=== PATIENT | female | born 2000 | race Caucasian/White ===

== ENCOUNTER 2019-01-31 20:57 | Emergency (ER) | payer OTHER ==
[~2019-01-31] VITALS: Ht 167.6 cm; Wt 77.1 kg
[2019-01-31 20:57] VITALS: BP 133/82
--- NOTE | 2019-01-31 22:24 | NUR ---
PT AMBULATED TO BED 12.
--- NOTE | 2019-01-31 22:30 | NUR ---
PT BIB FRIEND C/O SORE THROAT X1 WEEK. PT STATES SORE THROAT X1 WEEK, PRODUCTIVE COUGH XTODAY. --AIRWAY PATENT. CLEAR SPEECH. MILD REDNESS AROUND TONSILS. DENIES N/V/D. LUNG SOUNDS CLEAR BL. BREATHING EQUAL AND UNLABORED. PMH: DENIES RX: DENIES
--- NOTE | 2019-02-01 00:41 | NUR ---
FLU SWAB COLLECTED AND SENT W/ HEARING HEALTH TECHNICIAN.
[2019-02-01] MEDS ORDERED: AMOXICILLIN 500 MG CAP PO ONE (02:20)
[2019-02-01] MEDS ORDERED: LIDOCAINE VISCOUS 2% 20 ML UDC PO ONE (02:20)
--- NOTE | 2019-02-01 02:45 | NUR ---
RESULTS BACK AND NOTED BY ERMD AND FOR D/C.
[2019-02-01 03:32] VITALS: BP 121/78
--- NOTE | 2019-02-01 03:32 | NUR ---
Patient discharged with v/s stable. Written and verbal after care instructions given and explained. Patient alert, oriented and verbalized understanding of instructions. Ambulatory with steady gait. All questions addressed prior to discharge. ID band removed. Patient advised to follow up with PMD. Rx of AMOXICILLIN 500MG,LIDOCAINE VISCOUS SOLUTION given. Patient educated on indication of medication including possible reaction and side effects. Opportunity to ask questions provided and answered.
== END 2019-02-01 03:32 | disposition home or self-care (01) ==
LOC: MED 20:57
DX: J02.8 Acute pharyngitis due to other specified organisms (principal); H92.02 Otalgia, left ear; B96.89 Other specified bacterial agents as the cause of diseases classified elsewhere
CPT/HCPCS: 87804; 99283

== ENCOUNTER 2021-07-19 20:04 | Emergency (ER) | payer SELFPAY ==
[~2021-07-19] VITALS: Ht 167.6 cm; Wt 80.7 kg
[2021-07-19 20:10] VITALS: BP 147/88
--- NOTE | 2021-07-19 20:13 | NUR ---
TO LOBBY A/W BED AMBULATORY
--- NOTE | 2021-07-19 20:15 | NUR ---
21 Y/O FEMALE PATIENT CAME TO THE ED C/O VOMITTINGX 1 WEEK. PT STATES, " I HAVENT BEEN ABLE TO KEEP ANYTHING FOR A WEEK." SKIN IS PINK/WARM/DRY; AAOX4 WITH EVEN AND STEADY GAIT; LUNGS CLEAR BL; HR EVEN AND REGULAR; PT DENIES ANY FEVER, CP, SOB, OR COUGH AT THIS TIME; PATIENT STATES PAIN OF 8/10 AT THIS TIME; VSS; PATIENT POSITIONED FOR COMFORT; HOB ELEVATED; BEDRAILS UP X2; BED DOWN. ER MD MADE AWARE OF PT STATUS. NKA PMH: DENIES G4 A2 L1
[2021-07-19 20:51] LABS: BASOPHILS % (AUTO) 0.2 % (0.0-2.0); EOSINOPHILS % (AUTO) 0.1 % (0.0-4.0); HEMATOCRIT 41.8 % (36-48); HEMOGLOBIN 13.7 g/dL (12.0-16.0); LYMPHOCYTES # (AUTO) 2.6 K/uL (2.5-16.5); LYMPHOCYTES % (AUTO) 15.1 % (20.5-51.1); MEAN CORPUSCULAR HEMOGLOBIN 28 pg (27-31); MEAN CORPUSCULAR HGB CONC 33 g/dL (33-37); MONOCYTES # (AUTO) 0.9 K/uL (0.8-1.0); MONOCYTES % (AUTO) 5.4 % (1.7-9.3); NEUTROPHILS # (AUTO) 13.9 K/uL (1.8-7.7); NEUTROPHILS % (AUTO) 79.2 % (42.2-75.2); PLATELET COUNT (AUTO) 332 K/uL (140-450); RED BLOOD CELL COUNT(AUTO) 4.98 MIL/uL (4.20-5.40); RED CELL DISTRIBUTION WIDTH 14.3 % (11.6-13.7); WHITE BLOOD COUNT (AUTO) 17.5 K/uL (4.8-10.8)
[2021-07-19 21:07] LABS: ALBUMIN 3.8 g/dL (3.4-5.0); CARBON DIOXIDE 28.7 mmol/L (21-32); CREATININE 0.8 mg/dL (0.6-1.3); POTASSIUM 3.7 mmol/L (3.5-5.1); TOTAL BILIRUBIN 0.7 mg/dL (0.0-1.0)
[2021-07-19] MEDS ORDERED: ONDANSETRON 4 MG/2 ML VIAL IVP ONE (23:05)
[2021-07-19] MEDS ORDERED: PROCHLORPERAZINE 10 MG/2 ML VIAL IVP ONE (23:05)
[2021-07-19] MEDS ORDERED: NACL 0.9% 1,000 ML IV ONE (23:05)
[2021-07-20] MEDS ORDERED: ONDA-24 SL (02:04)
[2021-07-20 02:10] VITALS: BP 147/88
[2021-07-20 02:34] LABS: APPEARANCE,URINE CLEAR (CLEAR); BILIRUBIN,URINE NEGATIVE (NEGATIVE); BLOOD, URINE NEGATIVE (NEGATIVE); COLOR,URINE YELLOW (YELLOW); LEUKOCYTE ESTERASE ,URINE NEGATIVE (NEGATIVE); NITRITE, URINE NEGATIVE (NEGATIVE); UGLUCOSE NEGATIVE (NEGATIVE)
== END 2021-07-20 02:15 | disposition home or self-care (01) ==
LOC: MED 20:04
DX: O21.0 Mild hyperemesis gravidarum (principal); O26.891 Other specified pregnancy related conditions, first trimester; R19.7 Diarrhea, unspecified; Z79.899 Other long term (current) drug therapy
CPT/HCPCS: 36415; 80053; 81003; 83690; 84702; 85025; 96361; 96374; 96375; 99284; J0780; J2405; J7030